=== PATIENT | male | born 1990 | race Caucasian/White ===

== ENCOUNTER 2016-10-03 04:00 | Emergency (ER) | payer OTHER ==
--- NOTE | 2016-10-03 04:51 | ED NURSING NOTES ---
Clinical Report - Nurses [facility] [address] [place] [address] 10/03/2016 4:00 [id number] TRI[facility] Triage time 04:Oct 03 2016. Acuity: LEVEL 3. Chief Complaint: SHORTNESS OF BREATH and DIFFICULTY BREATHING and COUGH and FEVER. SEPSIS SCREEN: Sepsis Screen: negative. Negative (no infection suspected/documented). --04:08 Sandra Bustillos 04:04 10/03/16. BP: 156/94. HR: 112. RR: 24. O2 saturation: 100% on room air. Temp: 100.1 F (oral). Pain level now: 810. --04:08 Sandra Bustillos. Weight: 81.6 kg stated. Height/Length: 73 inches Per Patient. BMI: 23.7. --04:05 Sandra Bustillos. Medications None. --04:04 Sandra Bustillos. Medication/allergy information source: the patient. --04:08 Sandra Bustillos. Allergies No Known Drug Allergy. --04:04 Sandra Bustillos. History Arrived by private vehicle. Historian: patient. Accompanied by family. ( Patient states he has been sick with a cough for about two week. He states the cough was productive and now is not. He states that he began having fever and is now having some shortness of breath.). He has had fever. PAST MEDICAL HX: No history of asthma. Immunizations: up-to-date. SOCIAL HX: Never smoker. Occasional alcohol use. History of drug use: marijuana. No infectious disease exposure. ABUSE ASSESSMENT: No report of abuse. FALL RISK ASSESSMENT: Fall risk assessment completed. No fall risk identified. NUTRITIONAL RISK ASSESSMENT: The nutritional risk assessment revealed no deficiencies. FUNCTIONAL ASSESSMENT: Functional assessment: no impairments noted. LEARNING NEEDS ASSESSMENT: The learning needs assessment revealed no barriers. SKIN INTEGRITY ASSESSMENT: Skin integrity risk assessment completed. No skin integrity risk identified. --04:08 Sandra Bustillos. PROBLEMS: Atypical Chest Pain. --04:04 Sandra Bustillos. ADDITIONAL SURGERIES: no known surgeries. Interventions ID band on patient. To treatment room. --04:08 Sandra Bustillos. PHYSICAL ASSESSMENT 04:08 10/03/16. Ambulatory to room. GENERAL / NEURO / PSYCH: Alert. Oriented X 4. Appears anxious. HEENT: Mucous membranes are pink. RESPIRATORY: Mild respiratory distress. The patient can speak in full sentences. CVS: Cardiac rhythm: sinus tachycardia. SKIN: Skin is warm and dry. --04:08 Sandra Bustillos. NURSING PROGRESS NOTES Pulse oximeter and NIBP monitor placed on patient; monitor alarms on. Reassurance given to the patient. Two patient identifiers checked. Call light placed in reach. Side rails up x 1. Bed placed in lowest position. Brakes of bed on. Patient ready for evaluation- chart flagged. --04:09 Sandra Bustillos 04:17 10/03/2016 Motrin PO Tablets 600 mg given. Allergies verified and confirmed 5 rights. --04:22 Sandra Bustillos 04:17 10/03/2016 Tylenol (Acetaminophen) PO Capsules 650 mg given. Allergies verified and confirmed 5 rights. --04:22 Sandra Bustillos 04:48 10/03/2016 Azithromycin PO Tablets 500 mg given. Allergies verified and confirmed 5 rights. --04:48 Sandra uBstillos 04:48 10/03/16. BP: 125/70. HR: 92. RR: 22. O2 saturation: 100% on room air. Pain level now: 8/10. --04:48 Sandra Bustillos Reassessment after medication administered. Overall patient status- he states feels better. --04:48 Sandra Bustillos. DISPOSITION / DISCHARGE Departure time: 045. Condition at departure: unchanged and stable. No learning barriers present. Discharge instructions provided and reviewed with the patient. Reviewed medication(s). Patient verbalized understanding. Written instructions provided in Mongolian. The patient was discharged by the physician. He was discharged home and accompanied by family. He left the Emergency Department ambulatory and via private vehicle. Family member driving. --04:57 Catherine Ortiz 04:56 10/03/16. BP: 124/73. HR: 103. RR: 20. O2 saturation: 100%. Temp: 99.1 F. --04:57 Catherine Ortiz. Locked/Released at 10/03/2016 4:58 by Catherine Ortiz,
--- NOTE | 2016-10-03 04:51 | ED ORDER SUMMARY ---
..... Patient: CESAR JOSHI OrderSheet [facility] VisitID: [id number] [address] [place] [address] 26y, M Registration Date/Time: 10/03/2016 ORDER SHEET Weight: 81.6 kg (stated) Allergies: No Known Drug Allergy GENERAL ORDERS: Chest 2V Urgent (04:11 10/03/2016 Rufino Rivera) (Ack 4:14 AMcQuoid ER Tech1) (4:21 AMcQuoid ER Tech1) MEDICATION ORDERS: Motrin PO 600 mg (NOW) (04:12 10/03/2016 Rufino Rivera) (4:22 HSoule) Tylenol PO 650 mg (NOW) (04:12 10/03/2016 Rufino Rivera) (4:22 HSoule) Azithromycin PO 500 mg (NOW) (04:38 10/03/2016 Rufino Rivera) (Ack 4:42 HSoule) (4:48 HSoule) IV FLUIDS: ORDER SHEET NOTES: [Electronically signed by Catherine Ortiz (04:58 10/03/2016)] [Electronically signed by Mode Mesa Dr. (03:50 10/10/2016)] [Electronically locked/signed by Catherine Ortiz (04:58 10/03/2016)]
--- NOTE | 2016-10-03 04:51 | ED CLINICAL REPORT ---
Clinical Report - Physicians/Mid Levels [facility] [address] [place] [address] 10/03/2016 4:00 [id number] Ar[facility]- By private vehicle. Historian- patient. HISTORY OF PRESENT ILLNESS Chief Complaint: COUGH and FEVER. This started past 2 weeks and is still present (worsening). It was gradual in onset and has been constant and waxing/waning but is not gone now. The illness is described as moderate. The patient has had a cough, difficulty breathing, a sore throat, nasal congestion and fever. He has had chills, muscle aches and a nasal discharge. Additional history - The patient has had contact with a sick individual. Similar symptoms previously: None. Recent medical care: Not recently seen/assessed. REVIEW OF SYSTEMS No headache, nausea, vomiting or skin rash. All systems otherwise negative, except as recorded above. PAST HISTORY See nurses notes. SOCIAL HISTORY Never smoker. Occasional alcohol use. History of occasional drug use: marijuana. Is a local resident. FAMILY HISTORY (sister has asthma). ADDITIONAL NOTES The nursing notes have been reviewed. PHYSICAL EXAM Vital Signs: 10/03/2016 04:04 BP: 156/94. HR: 112. RR: 24. O2 saturation: 100%. Temp: 100.1 F. Pain level now: 8/10. Blood pressure normal. Oxygen saturation normal. Appearance: Alert. No acute distress. (Thick dreadlocks). Eyes: Pupils equal, round and reactive to light. Eyes normal inspection. ENT: Ears normal. Nose normal. Pharynx normal. Uvula midline. Neck: Normal inspection. Neck supple. No meningeal signs. CVS: Normal heart rate and rhythm. Heart sounds normal. Pulses normal. Respiratory: No respiratory distress. Mildly decreased breath sounds diffusely over both lungs. No rales, rhonchi, wheezes or stridor. Abdomen: Soft and nontender. No organomegaly. Back: Normal inspection. Skin: Skin warm and dry. Normal skin color. No rash. Normal skin turgor. Extremities: Extremities exhibit normal ROM. No lower extremity edema. LABS, X-RAYS, AND EKG Chest X-ray: No acute disease. Normal lung markings present. Normal heart size. No infiltrate. Views: PA and lateral. Technique: good. The X-rays were independently viewed by me and interpreted contemporaneously by me. PROGRESS AND PROCEDURES Course of Care: the patient is a pleasant 26-year-old male with no pertinent past medical history presented for evaluation of signs and symptoms that are consistent with an upper respiratory tract infection. The patient has been having symptoms for the past 2 weeks. Chest x-ray warranted at this time. Patient appears nontoxic. Patient does have a fever at this time. We'll order a breathing treatment for the patient as he is reporting some difficulty with breathing. We'll reevaluate after the breathing treatment has been given. antipyretics and also been given in the emergency department. Chest x-ray does not show any acute consolidations. Because of the patient's time course of illness, antibiotics have been considered. I discussed with patient in regards to antibiotic therapy. Patient is agreeable to treatment plan with azithromycin. Patient is in no acute distress and appears nontoxic. Respirations improve his breathing treatment. Albuterol will also be added to the patient's medication prescriptions. patient with better air movement after breathing treatments. Do not the patient is to be admitted to the hospital or require further emergency department evaluation. Do not feel patient has pneumonia, pneumothorax, pulmonary embolism, or other more sinister etiology for his symptoms here in the emergency today. Upon reevaluation, patient continues to be in no acute distress. Patient continues to be nontoxic. Disposition: Discharged. CLINICAL IMPRESSION 10/03/2016 04:04 BP: 156/94. HR: 112. RR: 24. O2 saturation: 100%. Temp: 100.1 F. Pain level now: 8/10. Blood pressure normal. Oxygen saturation normal. Acute bacterial bronchitis (prolonged). Acute bronchospasm INSTRUCTIONS Warnings: GENERAL WARNINGS: Return or contact your physician immediately if your condition worsens or changes unexpectedly, if not improving as expected, or if other problems arise. Specifically return if pain, vomiting, bleeding, breathing difficulty or fever. Your Current Medications: CONTINUE TAKING THE FOLLOWING MEDICATIONS: None*. Prescription Medications: Zithromax Z-Primo: Take according to package instructions. No refills. Substitution is permissible. Albuterol HFA oral inhaler: inhale 1-2 puffs via spacer every 6 hours as needed for wheezing, difficulty breathing or shortness of breath. Dispense one (1) unit. No refill. (Disp with spacer) Phenergan w/ Codeine 10mg / 6.25mg per 5 mL: take 1 teaspoon every 6 hours as needed for cough. Dispense sixty (60) mL. No refill. Substitution is permissible. OTC Medications: Acetaminophen (available over the counter): take according to label instructions. Motrin (available over the counter): take according to label instructions. Follow-up: Return to the emergency department as needed. Follow up with your doctor in three days. Reason for referral: recheck today's concerns. Summary of care provided to patient via paper. Screening today revealed the patient's blood pressure to be in the normal range. The patient should follow up with a primary care provider for blood pressure management. Understanding of the discharge instructions verbalized by patient. (Electronically signed by Mode Mesa Dr. 10/10/2016 3:50)
--- NOTE | 2016-10-03 04:51 | ED ORDER SUMMARY ---
..... Patient: CESAR JOSHI OrderSheet [facility] VisitID: [id number] [address] [place] [address] 26y, M Registration Date/Time: 10/03/2016 ORDER SHEET Weight: 81.6 kg (stated) Allergies: No Known Drug Allergy GENERAL ORDERS: Chest 2V Urgent (04:11 10/03/2016 Rufino Rivera) (Ack 4:14 AMcQuoid ER Tech1) (4:21 AMcQuoid ER Tech1) MEDICATION ORDERS: Motrin PO 600 mg (NOW) (04:12 10/03/2016 Rufino Rivera) (4:22 HSoule) Tylenol PO 650 mg (NOW) (04:12 10/03/2016 Rufino Rivera) (4:22 HSoule) Azithromycin PO 500 mg (NOW) (04:38 10/03/2016 Rufino Rivera) (Ack 4:42 HSoule) (4:48 HSoule) IV FLUIDS: ORDER SHEET NOTES: [Electronically signed by Catherine Ortiz (04:58 10/03/2016)] [Electronically signed by Mode Mesa Dr. (03:50 10/10/2016)] [Electronically locked/signed by Catherine Ortiz (04:58 10/03/2016)]
--- NOTE | 2016-10-03 04:51 | ED NURSING NOTES ---
Clinical Report - Nurses [facility] [address] [place] [place] [address] 10/03/2016 4:00 [id number] TRI[facility] Triage time 04:Oct 03 2016. Acuity: LEVEL 3. Chief Complaint: SHORTNESS OF BREATH and DIFFICULTY BREATHING and COUGH and FEVER. SEPSIS SCREEN: Sepsis Screen: negative. Negative (no infection suspected/documented). --04:08 Sandra Bustillos 04:04 10/03/16. BP: 156/94. HR: 112. RR: 24. O2 saturation: 100% on room air. Temp: 100.1 F (oral). Pain level now: 810. --04:08 Sandra Bustillos. Weight: 81.6 kg stated. Height/Length: 73 inches Per Patient. BMI: 23.7. --04:05 Sandra Bustillos. Medications None. --04:04 Sandra Bustillos. Medication/allergy information source: the patient. --04:08 Sandra Bustillos. Allergies No Known Drug Allergy. --04:04 Sandra Bustillos. History Arrived by private vehicle. Historian: patient. Accompanied by family. ( Patient states he has been sick with a cough for about two week. He states the cough was productive and now is not. He states that he began having fever and is now having some shortness of breath.). He has had fever. PAST MEDICAL HX: No history of asthma. Immunizations: up-to-date. SOCIAL HX: Never smoker. Occasional alcohol use. History of drug use: marijuana. No infectious disease exposure. ABUSE ASSESSMENT: No report of abuse. FALL RISK ASSESSMENT: Fall risk assessment completed. No fall risk identified. NUTRITIONAL RISK ASSESSMENT: The nutritional risk assessment revealed no deficiencies. FUNCTIONAL ASSESSMENT: Functional assessment: no impairments noted. LEARNING NEEDS ASSESSMENT: The learning needs assessment revealed no barriers. SKIN INTEGRITY ASSESSMENT: Skin integrity risk assessment completed. No skin integrity risk identified. --04:08 Sandra Bustillos. PROBLEMS: Atypical Chest Pain. --04:04 Sandra Bustillos. ADDITIONAL SURGERIES: no known surgeries. Interventions ID band on patient. To treatment room. --04:08 Sandra Bustillos. PHYSICAL ASSESSMENT 04:08 10/03/16. Ambulatory to room. GENERAL / NEURO / PSYCH: Alert. Oriented X 4. Appears anxious. HEENT: Mucous membranes are pink. RESPIRATORY: Mild respiratory distress. The patient can speak in full sentences. CVS: Cardiac rhythm: sinus tachycardia. SKIN: Skin is warm and dry. --04:08 Sandra Bustillos. NURSING PROGRESS NOTES Pulse oximeter and NIBP monitor placed on patient; monitor alarms on. Reassurance given to the patient. Two patient identifiers checked. Call light placed in reach. Side rails up x 1. Bed placed in lowest position. Brakes of bed on. Patient ready for evaluation- chart flagged. --04:09 Sandra Bustillos 04:17 10/03/2016 Motrin PO Tablets 600 mg given. Allergies verified and confirmed 5 rights. --04:22 Sandra Bustillos 04:17 10/03/2016 Tylenol (Acetaminophen) PO Capsules 650 mg given. Allergies verified and confirmed 5 rights. --04:22 Sandra Bustillos 04:48 10/03/2016 Azithromycin PO Tablets 500 mg given. Allergies verified and confirmed 5 rights. --04:48 Sandra Bustillos 04:48 10/03/16. BP: 125/70. HR: 92. RR: 22. O2 saturation: 100% on room air. Pain level now: 8/10. --04:48 Sandra Bustillos Reassessment after medication administered. Overall patient status- he states feels better. --04:48 Sandra Bustillos. DISPOSITION / DISCHARGE Departure time: 045. Condition at departure: unchanged and stable. No learning barriers present. Discharge instructions provided and reviewed with the patient. Reviewed medication(s). Patient verbalized understanding. Written instructions provided in Romanian. The patient was discharged by the physician. He was discharged home and accompanied by family. He left the Emergency Department ambulatory and via private vehicle. Family member driving. --04:57 Catherine Ortiz 04:56 10/03/16. BP: 124/73. HR: 103. RR: 20. O2 saturation: 100%. Temp: 99.1 F. --04:57 Catherine Ortiz. Locked/Released at 10/03/2016 4:58 by Catherine Ortiz,
--- NOTE | 2016-10-03 06:15 | DIAGNOSTIC IMAGING REPORT ---
PROCEDURE: XR CHEST 2 VIEW INDICATION: FEVER TECHNIQUE: PA and lateral views. COMPARISON: None. FINDINGS: Lungs are clear. Heart and mediastinum are normal. Thorax is normal. IMPRESSION: 1. Negative chest.
--- NOTE | 2016-10-10 03:51 | ED MED RECONCILIATION SUMMARY ---
Patient: CESAR JOSHI Medication Reconciliation Report [facility] VisitID: [id number] [address] [place] [address] 26y, M Registration Date/Time: 10/03/2016 Weight: 81.6 kg Height/Length: 73 in. BMI: 23.7 ALLERGIES: No Known Drug Allergy The patient's Home Medications are listed below: NONE. The source(s) of the original Home Medication information: patient The following Medications were given to the patient in the Emergency Department: Motrin [PO] PO 600 mg, administered: 10/03/2016 4:17:00 AM Tylenol [PO] PO 650 mg, administered: 10/03/2016 4:17:00 AM Azithromycin [PO] PO 500 mg, administered: 10/03/2016 4:48:00 AM The following Medications were prescribed to the patient: Acetaminophen (available over the counter): take according to label instructions. -- [facility] [address] Dr. Motrin (available over the counter): take according to label instructions. -- Mode [facility] Dr. Zithromax Z-Primo: Take according to package instructions. No refills. Substitution is permissible. -- Mode [address] Dr. Albuterol HFA oral inhaler: inhale 1-2 puffs via spacer every 6 hours as needed for wheezing, difficulty breathing or shortness of breath. Dispense one (1) unit. No refill.(Disp with spacer) -- Mode [address] Dr. Phenergan w/ Codeine 10mg / 6.25mg per 5 mL: take 1 teaspoon every 6 hours as needed for cough. Dispense sixty (60) mL. No refill. Substitution is permissible. -- Mode [address] Dr.
--- NOTE | 2016-10-10 03:51 | ED MED RECONCILIATION SUMMARY ---
Patient: CESAR JOSHI Medication Reconciliation Report [facility] VisitID: [id number] [address] [place] [address] 26y, M Registration Date/Time: 10/03/2016 Weight: 81.6 kg Height/Length: 73 in. BMI: 23.7 ALLERGIES: No Known Drug Allergy The patient's Home Medications are listed below: NONE. The source(s) of the original Home Medication information: patient The following Medications were given to the patient in the Emergency Department: Motrin [PO] PO 600 mg, administered: 10/03/2016 4:17:00 AM Tylenol [PO] PO 650 mg, administered: 10/03/2016 4:17:00 AM Azithromycin [PO] PO 500 mg, administered: 10/03/2016 4:48:00 AM The following Medications were prescribed to the patient: Acetaminophen (available over the counter): take according to label instructions. -- [facility] [address] Dr. Motrin (available over the counter): take according to label instructions. -- Mode [address] Dr. Zithromax Z-Primo: Take according to package instructions. No refills. Substitution is permissible. -- Mode [address] Dr. Albuterol HFA oral inhaler: inhale 1-2 puffs via spacer every 6 hours as needed for wheezing, difficulty breathing or shortness of breath. Dispense one (1) unit. No refill.(Disp with spacer) -- Mode [address] Dr. Phenergan w/ Codeine 10mg / 6.25mg per 5 mL: take 1 teaspoon every 6 hours as needed for cough. Dispense sixty (60) mL. No refill. Substitution is permissible. -- Mode [address] Dr.
--- NOTE | 2016-10-10 03:51 | ED MAR SUMMARY ---
..... Medication Administration Record [facility] [address] [place] [address] Patient: CESAR JOSHI Visit ID: [id number] 26y, M Weight: 81.6 kg Height/Length: 73 in BMI: 23.7 ALLERGIES: No Known Drug Allergy Given 04:10/03/2016 Sandra Bustillos, Medication Administered: MOTRIN [PO], Dose: 600 mg Tablets PO. Medication Ordered: Motrin PO 600 mg (NOW). Given 04:10/03/2016 Sandra Bustillos, Medication Administered: TYLENOL [PO] (ACETAMINOPHEN), Dose: 650 mg Capsules PO. Medication Ordered: Tylenol PO 650 mg (NOW). Given 04:10/03/2016 Sandra Bustillos, Medication Administered: AZITHROMYCIN [PO], Dose: 500 mg Tablets PO. Medication Ordered: Azithromycin PO 500 mg (NOW).
--- NOTE | 2016-10-10 03:51 | ED MAR SUMMARY ---
..... Medication Administration Record [facility] [address] [place] [place] [address] Patient: CESAR JOSHI Visit ID: [id number] 26y, M Weight: 81.6 kg Height/Length: 73 in BMI: 23.7 ALLERGIES: No Known Drug Allergy Given 04:10/03/2016 Sandra Bustillos, Medication Administered: MOTRIN [PO], Dose: 600 mg Tablets PO. Medication Ordered: Motrin PO 600 mg (NOW). Given 04:10/03/2016 Sandra Bustillos, Medication Administered: TYLENOL [PO] (ACETAMINOPHEN), Dose: 650 mg Capsules PO. Medication Ordered: Tylenol PO 650 mg (NOW). Given 04:10/03/2016 Sandra Bustillos, Medication Administered: AZITHROMYCIN [PO], Dose: 500 mg Tablets PO. Medication Ordered: Azithromycin PO 500 mg (NOW).
--- NOTE | 2016-10-10 03:51 | ED DISCHARGE INSTRUCTIONS ---
Patient: CESAR JOSHI General Instructions [facility] VisitID: [id number] [place] [address] 26y, M Registration Date/Time: 10/03/2016 10/03/2016 04:04 BP: 156/94. HR: 112. RR: 24. O2 saturation: 100%. Temp: 100.1 F. Pain level now: 8/10. Blood pressure normal. Oxygen saturation normal. Acute bacterial bronchitis (prolonged). Acute bronchospasm INSTRUCTIONS Warnings: GENERAL WARNINGS: Return or contact your physician immediately if your condition worsens or changes unexpectedly, if not improving as expected, or if other problems arise. Specifically return if pain, vomiting, bleeding, breathing difficulty or fever. Your Current Medications: CONTINUE TAKING THE FOLLOWING MEDICATIONS: None*. Prescription Medications: Zithromax Z-Primo: Take according to package instructions. No refills. Substitution is permissible. Albuterol HFA oral inhaler: inhale 1-2 puffs via spacer every 6 hours as needed for wheezing, difficulty breathing or shortness of breath. Dispense one (1) unit. No refill. (Disp with spacer) Phenergan w/ Codeine 10mg / 6.25mg per 5 mL: take 1 teaspoon every 6 hours as needed for cough. Dispense sixty (60) mL. No refill. Substitution is permissible. OTC Medications: Acetaminophen (available over the counter): take according to label instructions. Motrin (available over the counter): take according to label instructions. Follow-up: Return to the emergency department as needed. Follow up with your doctor in three days. Reason for referral: recheck today's concerns. Summary of care provided to patient via paper. Screening today revealed the patient's blood pressure to be in the normal range. The patient should follow up with a primary care provider for blood pressure management. Understanding of the discharge instructions verbalized by patient. ADDITIONAL INFORMATION Bronchitis (Adult: Abx Tx) BRONCHITIS is an infection of the air passages (bronchial tubes). It often occurs during the common cold. Symptoms include cough with mucus (phlegm) and low-grade fever. Bronchitis usually lasts 7-14 days. Mild cases can be treated with simple home remedies. More severe infection is treated with an antibiotic. Home Care: If symptoms are severe, rest at home for the first 2-3 days. When you resume activity, don't let yourself get too tired. Do not smoke. Avoid being exposed to the smoke of others. You may use acetaminophen (Tylenol) or ibuprofen (Motrin, Advil) to control fever or pain, unless another medicine was prescribed for this. [NOTE: If you have chronic liver or kidney disease or ever had a stomach ulcer or GI bleeding, talk with your doctor before using these medicines.] Your appetite may be poor, so a light diet is fine. Avoid dehydration by drinking 6-8 glasses of fluids per day (water, soft, drinks, juices, tea, soup, etc.). Extra fluids will help loosen secretions in the lungs. Nasa-wbd-elondol cough medicines that containdextromethorphan(such as Robitussin DM) and decongestants (Actifed or Sudafed) may help relieve cough and congestion. [NOTE: Do not use decongestants if you have high blood pressure.] Finish all antibiotic medicine, even if you are feeling better after only a few days. Follow Up with your doctor or as directed if you dont start to feel better after three days. [NOTE: If you are age 65 or older, or if you have chronic asthma or COPD, we recommend a PNEUMOCOCCAL VACCINATION every five years and a yearly INFLUENZAVACCINATION (FLU-SHOT) every . Ask your doctor about this. If you had an X-ray, a radiologist will review it. You will be notified of any new findings that may affect your care.] Get Prompt Medical Attention if any of the following occur: Fever over 100.4F (38.0C) for more than three days Trouble breathing, wheezing or pain with breathing Coughing up blood or increased amounts of colored sputum Weakness, drowsiness, headache, facial pain, ear pain or a stiff neck Bronchospasm (Adult) Bronchospasm occurs when the airways (bronchial tubes) go into spasm and contract. This makes it hard to breathe and causes wheezing (a high-pitched whistling sound). Bronchospasm can also cause frequent coughing without the wheezing sound. Bronchospasm is due to irritation, inflammation or allergic reaction of the airways. People with asthma get bronchospasm. However, not everyone with bronchospasm has asthma. Being exposed to harmful fumes, a recent case of bronchitis, or a flare-up of chronic emphysema (COPD) may cause the airways to spasm. An episode of bronchospasm may last 7-14 days. Medicine may be prescribed to relax the airways and prevent wheezing. Antibiotics will be prescribed only if your doctor thinks there is a bacterial infection. Antibiotics do not help a viral infection. Home Care: Drink lots of water or other fluids (at least 10 glasses a day) during an attack. This will loosen lung secretions and make it easier to breathe. If you have heart or kidney disease, check with your doctor before you drink extra amounts of fluids. Take prescribed medicine exactly at the times advised. If you have a hand-held inhaler or aerosol breathing medicine, do not use it more than once every four hours, unless told to do so. If prescribed an antibiotic or prednisone, take all of the medicine even if you are feeling better after a few days. Do not smoke. Avoid being exposed to the smoke of others. If you were given an inhaler, use it exactly as directed. If you need to use it more often than prescribed, your condition may be getting worse. Contact your doctor or this facility. Follow Up With Your Doctor, Or As Directed. [ NOTE: If you are age 65 or older, or if you have chronic asthma or COPD, we recommend a PNEUMOCOCCAL VACCINATION every five years and a yearly INFLUENZA VACCINATION (FLU-SHOT) every . Ask your doctor about this.] Get Prompt Medical Attention If Any Of The Following Occur: Increased wheezing or shortness of breath Need to use your inhalers more often than usual without relief Fever of 100.4F (38C) or higher, or as directed by your healthcare provider Coughing up lots of dark-colored or bloody sputum (mucus) Chest pain with each breath You do not start to improve within 24 hours Azithromycin Oral tablet What is this medicine? AZITHROMYCIN (az ith ramana MYE sin) is a macrolide antibiotic. It is used to treat or prevent certain kinds of bacterial infections. It will not work for colds, flu, or other viral infections. How should I use this medicine? Take this medicine by mouth with a full glass of water. Follow the directions on the prescription label. The tablets can be taken with food or on an empty stomach. If the medicine upsets your stomach, take it with food. Take your medicine at regular intervals. Do not take your medicine more often than directed. Take all of your medicine as directed even if you think your are better. Do not skip doses or stop your medicine early. Talk to your bulk filler regarding the use of this medicine in children. Special care may be needed. What side effects may I notice from receiving this medicine? Side effects that you should report to your doctor or health long term care pharmacist as soon as possible: allergic reactions like skin rash, itching or hives, swelling of the face, lips, or tongue confusion, nightmares or hallucinations dark urine difficulty breathing hearing loss irregular heartbeat or chest pain pain or difficulty passing urine redness, blistering, peeling or loosening of the skin, including inside the mouth white patches or sores in the mouth yellowing of the eyes or skin Side effects that usually do not require medical attention (report to your doctor or health long term care pharmacist if they continue or are bothersome): diarrhea dizziness, drowsiness headache stomach upset or vomiting tooth discoloration vaginal irritation What may interact with this medicine? Do not take this medicine with any of the following medications: lincomycin This medicine may also interact with the following medications: amiodarone antacids cyclosporine digoxin magnesium nelfinavir phenytoin warfarin What if I miss a dose? If you miss a dose, take it as soon as you can. If it is almost time for your next dose, take only that dose. Do not take double or extra doses. Where should I keep my medicine? Keep out of the reach of children. Store at room temperature between 15 and 30 degrees C (59 and 86 degrees F). Throw away any unused medicine after the expiration date. What should I tell my health care provider before I take this medicine? They need to know if you have any of these conditions: kidney disease liver disease irregular heartbeat or heart disease an unusual or allergic reaction to azithromycin, erythromycin, other macrolide antibiotics, foods, dyes, or preservatives or trying to get breast-feeding What should I watch for while using this medicine? Tell your doctor or health long term care pharmacist if your symptoms do not improve. Do not treat diarrhea with over the counter products. Contact your doctor if you have diarrhea that lasts more than 2 days or if it is severe and watery. This medicine can make you more sensitive to the sun. Keep out of the sun. If you cannot avoid being in the sun, wear protective clothing and use sunscreen. Do not use sun lamps or tanning beds/booths. Albuterol Sulfate Pressurized inhalation, suspension What is this medicine? ALBUTEROL (al BYOO ter ole) is a bronchodilator. It helps open up the airways in your lungs to make it easier to breathe. This medicine is used to treat and to prevent bronchospasm. How should I use this medicine? This medicine is for inhalation through the mouth. Follow the directions on your prescription label. Take your medicine at regular intervals. Do not use more often than directed. Make sure that you are using your inhaler correctly. Ask you doctor or health care provider if you have any questions. Talk to your bulk filler regarding the use of this medicine in children. Special care may be needed. What side effects may I notice from receiving this medicine? Side effects that you should report to your doctor or health long term care pharmacist as soon as possible: allergic reactions like skin rash, itching or hives, swelling of the face, lips, or tongue breathing problems chest pain feeling faint or lightheaded, falls high blood pressure irregular heartbeat fever muscle cramps or weakness pain, tingling, numbness in the hands or feet vomiting Side effects that usually do not require medical attention (report to your doctor or health long term care pharmacist if they continue or are bothersome): cough difficulty sleeping headache nervousness or trembling stomach upset stuffy or runny nose throat irritation unusual taste What may interact with this medicine? anti-infectives like chloroquine and pentamidine caffeine cisapride diuretics medicines for colds medicines for depression or for emotional or psychotic conditions medicines for weight loss including some herbal products methadone some antibiotics like clarithromycin, erythromycin, levofloxacin, and linezolid some heart medicines steroid hormones like dexamethasone, cortisone, hydrocortisone theophylline thyroid hormones What if I miss a dose? If you miss a dose, use it as soon as you can. If it is almost time for your next dose, use only that dose. Do not use double or extra doses. Where should I keep my medicine? Keep out of the reach of children. Store at room temperature between 15 and 30 degrees C (59 and 86 degrees F). The contents are under pressure and may burst when exposed to heat or flame. Do not freeze. This medicine does not work as well if it is too cold. Throw away any unused medicine after the expiration date. Inhalers need to be thrown away after the labeled number of puffs have been used or by the expiration date; whichever comes first. Ventolin HFA should be thrown away 12 months after removing from foil pouch. Check the instructions that come with your medicine. What should I tell my health care provider before I take this medicine? They need to know if you have any of the following conditions: diabetes heart disease or irregular heartbeat high blood pressure pheochromocytoma seizures thyroid disease an unusual or allergic reaction to albuterol, levalbuterol, sulfites, other medicines, foods, dyes, or preservatives or trying to get breast-feeding What should I watch for while using this medicine? Tell your doctor or health long term care pharmacist if your symptoms do not improve. Do not use extra albuterol. If your asthma or bronchitis gets worse while you are using this medicine, call your doctor right away. If your mouth gets dry try chewing sugarless gum or sucking hard candy. Drink water as directed. You have been given the following additional information: Bronchitis, Antiobiotic Treatment (Adult) Bronchospasm (Adult) Azithromycin Oral tablet Albuterol Sulfate Pressurized inhalation, suspension (Electronically signed by [address]. 10/10/2016 3:50)
== END 2016-10-03 04:55 | disposition home or self-care (01) ==
LOC: ED SRH 04:00
DX: J15.9 Unspecified bacterial pneumonia (principal); B96.89 Other specified bacterial agents as the cause of diseases classified elsewhere; J98.01 Acute bronchospasm